=== PATIENT | male | born 1995 | race Caucasian/White ===

== ENCOUNTER 2018-01-16 10:24 | Day surgery (SDC) | payer BC ==
[2018-01-16] MEDS ORDERED: LR 1,000 ML IV ONE (10:34)
[2018-01-16] MEDS ORDERED: MIDAZOLAM 2 MG/2 ML VIAL IVP ONE (10:56)
[2018-01-16] MEDS ORDERED: ONDANSETRON 4 MG/2 ML VIAL IVP PRN (10:57)
--- NOTE | 2018-01-16 10:57 | PDANEPAE ---
ANE History of Present Illness nausea, here for egd ANE Past Medical History - Cardiovascular History Hx Hypertension: No Hx Arrhythmias: No Hx Chest Pain: No Hx Coronary Artery / Peripheral Vascular Disease: No Hx CHF / Valvular Disease: No Hx Palpitations: No - Pulmonary History Hx COPD: No Hx Asthma/Reactive Airway Disease: No Hx Recent Upper Respiratory Infection: No Hx Oxygen in Use at Home: No Hx Sleep Apnea: No Sleep Apnea Screening Result - Last Documented: Negative - Neurologic History Hx Cerebrovascular Accident: No Hx Seizures: No Hx Dementia: No - Endocrine History Hx Diabetes: No - Renal History Hx Renal Disorders: No - Liver History Hx Hepatic Disorders: No - Neurological & Psychiatric Hx Hx Neurological and Psychiatric Disorders: Yes Neurological / Psychiatric History Comment: anxiety. ADHD - Cancer History Hx Cancer: No - Congenital Disorder History Hx Congenital Disorders: No - GI History Hx Gastrointestinal Disorders: Yes Gastrointestinal History Comment: GERD. nausea, "very sensitive stomach" - Other Health History Other Health History: none - Chronic Pain History Chronic Pain: No - Surgical History Prior Surgeries: hernia repair. finger surgery. wisdom teeth removal ANE Review of Systems Review of Systems: - Exercise capacity METS (RN): 5 METS ANE Patient History - Allergies Allergies/Adverse Reactions: No Known Allergies Allergy (Verified 01/13/18 12:37) - Home Medications Home Medications: Adderall 10 MG (*) 01/13/18 [Last Taken 01/12/18] Cortisol Otc Supplement 01/13/18 [Last Taken 01/15/18] Gaviscon Es Tablet Chew PRN 01/13/18 [Last Taken 01/15/18] - NPO status NPO Since - Liquids (Date): 01/15/18 NPO Since - Liquids (Time): 11:59 NPO Since - Solids (Date): 01/15/18 NPO Since - Solids (Time): 11:59 - Smoking Hx Smoking Status: Current some day smoker - Family Anes Hx Family Hx Anesthesia Complications: none ANE Labs/Vital Signs - Vital Signs Blood Pressure: 139/85 Heart Rate: 73 Respiratory Rate: 18 O2 Sat (%): 98 Height: 180.34 cm Weight: 66.224 kg ANE Physical Exam - Airway Neck exam: FROM Mallampati Score: Class 2 Mouth exam: normal dental/mouth exam - Pulmonary Pulmonary: no respiratory distress - Cardiovascular Cardiovascular: regular rate and rhythym - ASA Status ASA Status: II (extremly but appropriately nervous) ANE Anesthesia Plan Anesthesia Plan: GA with mask (versed nd zofran to start)
[2018-01-16] MEDS ORDERED: fentaNYL 100 MCG/2 ML INJ ONE (11:11)
[2018-01-16] MEDS ORDERED: LIDOCAINE 2% 100 MG/5 ML SYR ONE (11:11)
[2018-01-16] MEDS ORDERED: PROPOFOL/EMULSION 500 MG/50 ML BOTTLE IV ONE (11:11)
[2018-01-16] MEDS ORDERED: NALOXONE HCL 0.4 MG/ML INJ IVP PRN (11:27)
[2018-01-16] MEDS ORDERED: oxyCODONE IR 5 MG TAB PO PRN (11:27)
[2018-01-16] MEDS ORDERED: fentaNYL 100 MCG/2 ML INJ IVP PRN (11:27)
[2018-01-16] MEDS ORDERED: PROMETHAZINE HCL 25 MG/ML INJ IVP PRN (11:27)
[2018-01-16] MEDS ORDERED: DEXAMETHASONE 4 MG/ML VIAL IVP PRN (11:27)
[2018-01-16] MEDS ORDERED: LR 500 ML IV PRN (11:27)
--- NOTE | 2018-01-16 11:28 | PDGENHP ---
History & Physical Chief Complaint: Heartburn. N/V. History of Present Illness: 23 yo male with longstanding GERD, Nausea and emesis. Pertinent Past, Social, Family History: PMH: Anxiety d/o. SH: No tobacco. No ETOH. THC. FH: Negative for PUD or Celiac Relevant Physical Exam: NAD. CTA B/L. RRR without m/r/g. GI: Soft. NABS. NT/ ND. No R/G Cardiorespiratory Assessment: ASA II. EGD with MAC
--- NOTE | 2018-01-16 11:45 | GIREPORT ---
[facility] Surgical Services - Endoscopy Department Patient Name: Robby Iniguez Procedure Date: 01/16/2018 11:15 AM Patient Type: Outpatient Attending MD/ ER Physician: Arnulfo Oshea MD Procedure: Upper GI endoscopy Indications: Epigastric abdominal pain, Heartburn, Nausea with vomiting Providers: Arnulfo Oshea MD Medicines: Propofol per Anesthesia Complications: No immediate complications. Description of Procedure: After obtaining informed consent, the endoscope was passed under direct vision. Throughout the procedure, the patient's blood pressure, pulse, and oxygen saturations were monitored continuously. The Endoscope was intro duced through the mouth, and advanced to the second part of duodenum. [facility] was accomplished without difficulty. The patient tolerated th e procedure well. Findings: The esophagus was normal. Diffuse mildly erythematous mucosa without bleeding was found in the en tire examined stomach. Biopsies were taken with a cold forceps for histology . The duodenal bulb, first portion of the duodenum and second portion of the duodenum were normal. Biopsies for histology were taken with a cold for ceps for evaluation of celiac disease. Estimated Blood Loss: Estimated blood loss: none. Post Op Diagnosis: - Normal esophagus. - Erythematous mucosa in the stomach. Biopsied. - Normal duodenal bulb, first portion of the duodenum and second portio n of the duodenum. Biopsied. Recommendation: - Await pathology results. - Gluten free diet. - Continue present medications. - Patient has a contact number available for emergencies. The signs and symptoms of potential delayed complications were discussed with the pat ient. Return to normal activities tomorrow. Written discharge instructions we re provided to the patient. - Return to physician behavioral assistant at the next available appointment. - Thank you for allowing me to be involved in the care of your patient. Attending Participation: I personally performed the entire procedure without the assistance of a fellow, resident or surg ical behavioral assistant. Arnulfo Oshea MD Arnulfo Oshea MD 01/16/2018 11:44:52 AM This report has been signed electronicallyDavid MD Dorie Number of Addenda: 0 Note Initiated On: 01/16/2018 11:15 AM [email or web address]
[2018-01-16] MEDS ORDERED: DEXAMETHASONE 4 MG/ML VIAL ONE (12:20)
[2018-01-16 12:49] VITALS: BP 121/81
--- NOTE | 2018-01-16 15:22 | POSTANESTH ---
Post Anesthetic Evaluation Cardiovascular Status: Normal, Stable Respiratory Status: Normal, Stable Level of Consciousness/Mental Status: Can Participate in Eval Pain Control: Adequate, Prn Tx Ordered Nausea/Vomiting Control: Adequate, Prn Tx Ordered Complications Possibly Related to Anesthesia: None Noted (seen rior to dc. no questions or complaints)
== END 2018-01-16 12:51 | disposition home or self-care (01) ==
LOC: FSGY 10:24
PROVIDERS: ATTEND Internal Medicine Gastroenterology
DX: K21.9 Gastro-esophageal reflux disease without esophagitis (principal); R11.2 Nausea with vomiting, unspecified
CPT/HCPCS: J1100; J2001; J2250; J2405; J2704; J3010